=== PATIENT | male | born 1985 | race Two or more races ===

== ENCOUNTER 2024-02-09 18:27 | Emergency (ER) | payer SELFPAY ==
[2024-02-09] MEDS ORDERED: Erythromycin Base 0.5% Ophth Oint 1 GM Tube EYERT ONE (19:27)
[2024-02-09] MEDS ORDERED: Doxycycline 100 MG Tab PO ONE (19:27)
== END 2024-02-09 20:10 | disposition home or self-care (01) ==
LOC: FB.ED 18:27
DX: H00.011 Hordeolum externum right upper eyelid (principal); F17.200 Nicotine dependence, unspecified, uncomplicated; Z79.899 Other long term (current) drug therapy
CPT/HCPCS: 99283; A9270

== ENCOUNTER 2024-02-29 09:06 | Emergency (ER) | payer OTHER ==
[2024-02-29] MEDS ORDERED: Sodium Chloride 0.9% 10 ML Syringe FLUSH PRN (09:21)
[2024-02-29] MEDS: Ondansetron 4 MG/2 ML SDV IVPUSH ONE (09:36)
[2024-02-29 09:38] LABS: BASOPHILS PERCENT AUTO 0.5 % (0.3-3.8); EOSINOPHILS ABSOLUTE AUTO 0.1 x10-3/uL (0.0-0.6); EOSINOPHILS PERCENT AUTO 1.1 % (0.1-6.8); HEMOGLOBIN 15.1 g/dL (12.9-17.7); LYMPHOCYTES PERCENT AUTO 38.8 % (15.8-45.3); MEAN CORPUSCULAR HEMOGLOBIN 33.8 pg (27.0-33.3); MEAN CORPUSCULAR HGB CONC 33.6 g/dL (28.7-35.3); MEAN CORPUSCULAR VOLUME 100.4 fL (80.8-98.7); MEAN PLATELET VOLUME 7.6 fL (6.7-11.0); MONOCYTES ABSOLUTE AUTO 0.5 x10-3/uL (0.0-1.2); MONOCYTES PERCENT AUTO 6.8 % (5.5-15.2); NEUTROPHILS ABSOLUTE AUTO 4.1 x10-3/uL (1.7-6.9); NEUTROPHILS PERCENT AUTO 52.8 % (40.3-71.8); PLATELET COUNT,PLT 300 x10(3)uL (117-477); RED BLOOD CELL COUNT 4.48 x10(6)uL (3.90-5.90); RED CELL DISTRIBUTION WIDTH 13.3 % (12.4-15.0); WHITE BLOOD CELL COUNT,WBC 7.7 x10-3/uL (3.2-10.1)
[2024-02-29 09:39] LABS: BLOOD UREA NITROGEN,BUN 6 mg/dL (7-18); BUN/CREATININE RATIO 6.7 (9-20); CALCIUM 8.5 mg/dL (8.6-10.2); CARBON DIOXIDE,CO2 29 mmol/L (21-32); CHLORIDE,CL 107 mmol/L (100-110); CREATININE 0.9 mg/dL (0.70-1.30); ESTIMATED GFR 111 mL/min (>60); GLUCOSE RANDOM 130 mg/dL (80-116); POTASSIUM,K 3.9 mmol/L (3.5-5.3); SODIUM,NA 143 mmol/L (135-145)
[2024-02-29] MEDS ORDERED: Naloxone 0.4 MG/ML SDV IVPUSH PRN (09:42)
[2024-02-29 09:45] LABS: A/G RATIO 0.9; ALANINE AMINOTRANSFERASE,ALT 20 U/L (12-36); ALBUMIN 3.4 g/dL (3.5-5.2); ALKALINE PHOSPHATASE 82 IU/L (56-112); ASPARTATE AMNIOTRANSFERASE,AST 14 IU/L (5-25); BILIRUBIN TOTAL 0.2 mg/dL (0.1-1.3); PROTEIN TOTAL,TP 7.2 g/dL (6.0-8.0)
[2024-02-29] MEDS: fentaNYL 100 MCG/2 ML SDV IVPUSH ONE (09:47)
[2024-02-29] MEDS: Sodium Chloride 0.9% 1,000 ML IV SCH (09:49)
[2024-02-29] MEDS: Pantoprazole 80 MG in Sodium Chloride 0.9% 100 ML IV SCH (09:53)
[2024-02-29 11:13] LABS: BILIRUBIN,URINE NEGATIVE (NEGATIVE); GLUCOSE,URINE NORMAL (NORMAL); KETONES,URINE NEGATIVE (NEGATIVE); LEUKOCYTE ESTERASE,URINE NEGATIVE (NEGATIVE); NITRITE,URINE NEGATIVE (NEGATIVE); OCCULT BLOOD,URINE NEGATIVE (NEGATIVE); PROTEIN,URINE NEGATIVE (NEGATIVE); UROBILINOGEN,URINE NORMAL (NEGATIVE)
[2024-02-29 11:17] LABS: APPEARANCE,URINE CLEAR (CLEAR); BACTERIA,URINE FEW (NS); COLOR,URINE YELLOW (YELLOW); RBC,URINE 0-5 (0-5); SQUAMOUS EPITHELIAL CELLS,UR FEW (NS,R,O); WBC,URINE 0-5 (0-5)
[2024-02-29] MEDS: Prochlorperazine 10 MG/2 ML SDV IVPUSH ONE (11:18)
[2024-02-29 11:21] LABS: AMPHETAMINES SCREEN, URINE NEGATIVE (NEGATIVE); BARBITURATE SCREEN,URINE NEGATIVE (NEGATIVE); BENZODIAZEPINES SCREEN,URINE POSITIVE (NEGATIVE); BUPRENORPHINE SCREEN,URINE NEGATIVE (NEGATIVE); METHADONE SCREEN, URINE NEGATIVE (NEGATIVE); METHAMPHETAMINE SCREEN, URINE POSITIVE (NEGATIVE); OXYCODONE SCREEN,URINE NEGATIVE (NEGATIVE); THC SCREEN,URINE POSITIVE (NEGATIVE)
[2024-03-02 15:10] LABS: FOLATE,SERUM 12.8 ng/mL (>=5.9)
== END 2024-02-29 11:35 | disposition left against medical advice (07) ==
LOC: FB.ED 09:06
DX: R10.32 Left lower quadrant pain (principal); F15.10 Other stimulant abuse, uncomplicated; F13.10 Sedative, hypnotic or anxiolytic abuse, uncomplicated; F12.10 Cannabis abuse, uncomplicated; R11.2 Nausea with vomiting, unspecified
CPT/HCPCS: 36415; 80053; 80307; 81001; 82271; 82607; 82746; 83605; 83735; 84443; 85025; 86140; 93005; 93010; 96365; 96366; 96375; 99284; 99284-25; C9113; J0780; J2405; J3010; J3490; J7030